=== PATIENT | male | born 1995 | race Caucasian/White ===

== ENCOUNTER 2016-10-06 01:18 | Emergency (ER) ==
[2016-10-06 01:26] VITALS: BP 120/76; TEMP 98.6; BMI 27.1
[2016-10-06] MEDS ORDERED: MORPHINE 2 MG/ML SYRINGE IM STA (01:29)
[2016-10-06] MEDS ORDERED: TORADOL IM STA (01:29)
[2016-10-06] MEDS ORDERED: ZOFRAN 4 MG/2 ML IM STA (01:29)
--- NOTE | 2016-10-06 01:32 | ED.PDOC ---
General ED Provider: Dr. LAURA WHITMORE-ER Chief Complaint: Tooth Problem Stated Complaint: my wisdom tooth hurts Time Seen by Physician: 01:30 Mode of Arrival: Walk-In Information Source: Patient, Family Exam Limitations: No limitations Nursing and Triage Documentation Reviewed and Agree: Yes EENT Complaint Exam - Dental/Oral Complaint/Exam Mechanism of Injury: No known trauma Onset/Duration: 3 days Symptoms Are: Still present Timing: Constant Initial Severity: Mild Current Severity: Moderate Location: left lower wisdom Character: Reports: Dull, Aching, Throbbing Aggravating: Reports: Heat, Cold, Chewing Alleviating: Reports: None Associated Signs and Symptoms: Reports: Swelling. Denies: Discharge, Fever, Foul odor, Foul taste in mouth Related History: Reports: Similar episode Dental/Oral Surgical History: Reports: None Tooth Findings: Present: Percussion tenderness Cervical Lymphadenopathy Present: No Facial Swelling Present: No Bleeding Present: No Septal Hematoma: No Foreign Body Present: No Dysphagia Present: No Drooling Present: No Asymmetrical Tonsillar Swelling Present: No Uvula Midline: Yes Deepa-tonsillar Fluctuence: No Trismus Present: No Palatal Petechiae Present: No Scarlatinaform Rash Present: No Differential Diagnoses: Other Review of Systems - Review Of Systems Constitutional: Reports: No symptoms Eyes: Reports: No symptoms Ears, Nose, Mouth, Throat: Reports: Mouth pain Respiratory: Reports: No symptoms Cardiac: Reports: No symptoms GI: Reports: No symptoms : Reports: No symptoms Musculoskeletal: Reports: No symptoms Skin: Reports: No symptoms Neurological: Reports: No symptoms Endocrine: Reports: No symptoms Hematologic/Lymphatic: Reports: No symptoms All Other Systems: Reviewed and Negative Past Medical History - Past Medical History Previously Healthy: Yes Endocrine: Reports: Unknown Cardiovascular: Reports: Unknown Respiratory: Reports: Unknown Hematological: Reports: Unknown Gastrointestinal: Reports: Unknown Genitourinary: Reports: Unknown Neuro/Psych: Reports: Unknown Musculoskeletal: Reports: Unknown Cancer: Reports: Unknown - Surgical History General Surgical History: Reports: Unknown - Family History Family History: Reports: Unknown - Social History Smoking Status: Never smoker Hx Substance Use: No Alcohol Screening: None Lives: With family - Immunizations Tetanus Shot up to Date: Yes Physical Exam - Physical Exam Appearance: Well-appearing, No pain distress, Well-nourished Pain Distress: Mild Eyes: JIGNESH, EOMI, Conjunctiva clear ENT: Ears normal, Nose normal, Oropharynx normal Neck: Supple Respiratory: Airway patent Cardiovascular: RRR, Pulses normal, No rub, No murmur GI/: Soft, Nontender, No masses, Bowel sounds normal, No Organomegaly Musculoskeletal: Normal strength Skin: Warm, Dry, Normal color Neurological: Sensation intact Psychiatric: Affect appropriate, Mood appropriate Critical Care Note - Critical Care Note Total Time (mins): 0 Course - Course Orders, Labs, Meds: Orders Category Date Time Status Ketorolac Tromethamine [Toradol] MEDS 10/06/16 01:29 Stat 60 mg IM ONCE STA Morphine Sulfate [Morphine 2 mg/ml Syringe] MEDS 10/06/16 01:29 Stat 2 mg IM ONCE STA Ondansetron HCl/Pf [Zofran 4 mg/2 ml] MEDS 10/06/16 01:29 Stat 4 mg IM ONCE STA Vital Signs: Temp Pulse Resp BP Pulse Ox 10/06/16 01:18 98.6 F 63 18 120/76 99 Departure - Departure Time of Disposition: 01:32 Disposition: HOME SELF-CARE Discharge Problem: Impacted tooth Instructions: Toothache (ED) Condition: Good Pt referred to PMD for follow-up: Yes Additional Instructions: amoxil 500mg tid x 7days--norco 5mg q 4hrs prnpan #10--f/u with dentist may Allergies/Adverse Reactions: Allergies No Known Allergies Allergy (Unverified 10/06/16 01:23) Home Medications: Ambulatory Orders 1 [No Reported Medications] 05/23/14 Disposition Discussed With: Patient, Family
== END 2016-10-06 02:00 | disposition home or self-care (01) ==
LOC: ED 01:18
DX: K01.1 Impacted teeth (principal)
CPT/HCPCS: 96372; 99282